=== PATIENT | male | born 1950 | race Caucasian/White ===

== ENCOUNTER 2016-10-11 09:04 | Inpatient (IN) | payer BC ==
[~2016-10-11] VITALS: Ht 177.8 cm; Wt 80.8 kg
[2016-10-11 09:11] VITALS: BP 155/91; PULSE 68; RESP 14; TEMP 97.7; O2SAT 98
--- NOTE | 2016-10-11 09:20 | PD ---
HPI Chief Complaint: abdominal pain, vomiting Time Seen by Provider: 09:20 Travel History International Travel<30 days: No Contact w/Intl Traveler<30days: No Traveled to known affect area: No History of Present Illness HPI 66-year-old male came to the emergency room with his with history of epigastric and right upper quadrant pain, nausea and vomiting since 2 days. Patient says that 2 days ago he was vomiting but then the vomiting stopped yesterday. He mostly took rest and didn't eat much and was feeling better. He ate supper last night and since 5 AM he has started with the pain and vomiting again. His vomit is green in color with no blood in it. He had a bowel movement yesterday which was normal as per him. History of fever or chills. No history of previous abdominal surgeries. He is from out of [facility] and visiting in [place]. He has history of diabetes and hypertension. His vital signs were essentially stable. [facility] Past Medical History Narrative Medical List of his past medical, surgical, social and family history was reviewed by me. Social History Tobacco Use: No Allergies-Medications (Allergen,Severity, Reaction): Coded Allergies: Penicillin (Verified Allergy, Unknown, 10/11/16) Comments List of his allergies reviewed from the nursing note. Reported Meds & Prescriptions Reported Meds & Active Scripts Active Reported Coq-10 (Coenzyme Q10 (Ubidecarenone)) 100 Mg Cap 100 Mg PO BID Aspir-81 (Aspirin) 81 Mg Tabdr Zetia (Ezetimibe) 10 Mg Tab 10 Mg PO DAILY Amlodipine-Benazepril 10-40 Mg Cap 1 Cap PO DAILY Omeprazole 40 Mg Cap 40 Mg PO BID Metformin ER (Metformin HCl) 500 Mg Liseth 500 Mg PO DAILY With evening meal Metoprolol Succinate ER 24 HR (Metoprolol Succinate) 100 Mg Tab 100 Mg PO DAILY Hydrochlorothiazide 12.5 Mg Tab 12.5 Mg PO DAILY Crestor (Rosuvastatin Calcium) 20 Mg Tab 20 Mg PO DAILY Narrative Medication List of his home medications reviewed from the nursing note. Review of Systems Except as stated in HPI: all other systems reviewed are Neg Physical Exam Narrative GENERAL: Awake, alert, moderate distress SKIN: Warm and dry. HEAD: Atraumatic. Normocephalic. EYES: Pupils equal and round. No scleral icterus. No injection or drainage. ENT: No nasal bleeding or discharge. Mucous membranes pink and moist. NECK: Trachea midline. No JVD. CARDIOVASCULAR: Regular rate and rhythm. No murmur appreciated. RESPIRATORY: No accessory muscle use. Clear to auscultation. Breath sounds equal bilaterally. GASTROINTESTINAL: Abdomen soft, Thacker sign positive, nondistended. Hepatic and splenic margins not palpable. MUSCULOSKELETAL: No obvious deformities. No clubbing. No cyanosis. No edema. NEUROLOGICAL: Awake and alert. No obvious cranial nerve deficits. Motor grossly within normal limits. Normal speech. PSYCHIATRIC: Appropriate mood and affect; insight and judgment normal. Data Data Last Documented VS Vital Signs Date Time Temp Pulse Resp B/P Pulse Ox O2 Delivery O2 Flow Rate FiO2 10/11/16 10:45 99 Room Air 10/11/16 09:11 97.7 68 14 155/91 Orders Complete Blood Count With Diff (10/11/16 09:25) Comprehensive Metabolic Panel (10/11/16 09:25) Lipase (10/11/16 09:25) Prothrombin Time / Inr (Pt) (10/11/16 09:25) Urinalysis - C+S If Indicated (10/11/16 09:25) Iv Access Insert/Monitor (10/11/16 09:25) Ecg Monitoring (10/11/16 09:25) Oximetry (10/11/16 09:25) Ed Urine Pregnancytest Poc (10/11/16 09:25) Morphine Inj (Morphine Inj) (10/11/16 09:30) Ondansetron Inj (Zofran Inj) (10/11/16 09:30) Sodium Chlor 0.9% 1000 Ml Inj (Ns 1000 M (10/11/16 09:30) Us Abdomen Gallbladder (10/11/16 ) Sodium Chlor 0.9% 1000 Ml Inj (Ns 1000 M (10/11/16 11:30) Levofloxacin 500 Mg Premix Inj (Levaquin (10/11/16 11:30) Metronidazole 500 Mg Inj (Flagyl 500 Mg (10/11/16 11:30) Blood Culture (10/11/16 11:20) Diet Npo (10/11/16 Lunch) Admit Order (Ed Use Only) (10/11/16 11:20) Labs Laboratory Tests Test 10/11/16 10:25 White Blood Count 13.0 TH/MM3 Red Blood Count 5.38 MIL/MM3 Hemoglobin 14.7 GM/DL Hematocrit 43.7 % Mean Corpuscular Volume 81.1 FL Mean Corpuscular Hemoglobin 27.4 PG Mean Corpuscular Hemoglobin 33.8 % Concent Red Cell Distribution Width 13.8 % Platelet Count 202 TH/MM3 Mean Platelet Volume 9.3 FL Neutrophils (%) (Auto) 86.3 % Lymphocytes (%) (Auto) 7.3 % Monocytes (%) (Auto) 5.7 % Eosinophils (%) (Auto) 0.3 % Basophils (%) (Auto) 0.4 % Neutrophils # (Auto) 11.3 TH/MM3 Lymphocytes # (Auto) 0.9 TH/MM3 Monocytes # (Auto) 0.7 TH/MM3 Eosinophils # (Auto) 0.0 TH/MM3 Basophils # (Auto) 0.1 TH/MM3 CBC Comment DIFF FINAL Differential Comment Prothrombin Time 12.3 SEC Prothromb Time International 1.1 RATIO Ratio Sodium Level 138 MEQ/L Potassium Level 3.8 MEQ/L Chloride Level 100 MEQ/L Carbon Dioxide Level 25.0 MEQ/L Anion Gap 13 MEQ/L Blood Urea Nitrogen 17 MG/DL Creatinine 1.20 MG/DL Estimat Glomerular Filtration 61 ML/MIN Rate Random Glucose 168 MG/DL Calcium Level 9.6 MG/DL Total Bilirubin 0.8 MG/DL Aspartate Amino Transf 13 U/L (AST/SGOT) Alanine Aminotransferase 24 U/L (ALT/SGPT) Alkaline Phosphatase 66 U/L Total Protein 8.2 GM/DL Albumin 3.8 GM/DL Lipase 96 U/L [facility] Medical Decision Making Medical Screen Exam Complete: Yes Emergency Medical Condition: Yes Medical Record Reviewed: Yes Differential Diagnosis Acute cholecystitis, acute pancreatitis, biliary colic, small bowel obstruction Narrative Course 9:58 AM based on the bedside ultrasound I asked the housing inspector just to do an official ultrasound. She happened to be in the department. Blood test and CAT scan are pending. Patient was medicated for pain and nausea and given IV fluid bolus. 11:24 AM based on the blood test and ultrasound report I discussed the case with general surgeon Dr. Lucero who is risk assessment consultant and he agreed and he will admit the patient. He will try to operate on him today if an OR is available. He wanted the patient to be transferred to the main hospital. Patient will be kept nothing by mouth. I ordered another liter of IV fluid bolus. He will get Flagyl and Levaquin IV. Procedures Procedure Narrative Emergency department right upper quadrant ultrasound was performed with patient consent. Curvilinear probe was used in the transverse and sagittal views within the right upper quadrant revealing gallbladder with stones in the gallbladder. Patient was radiologic Thacker's positive. I was unable to patch the order and send the images electronically. EKG Prior to Arrival: No Physician Communication Physician Communication Dr. Lucero Diagnosis Primary Impression: Acute cholecystitis Additional Impression: Intractable pain Admitting Information Admitting Physician Requests: Admit Rodrigo Chang MD Oct 11, 2016 09:20
[2016-10-11] MEDS ORDERED: MORPHINE SULFATE 4 MG/ML INJ IV PUSH ONE (09:30)
[2016-10-11] MEDS ORDERED: SODIUM CHLOR 0.9% 1000 ML INJ 1,000 ML IV ONE ×2 (09:30→11:30)
[2016-10-11] MEDS ORDERED: ONDANSETRON HCL 4 MG/2 ML VIAL IV PUSH ONE ×2 (09:30→14:53)
[2016-10-11] MEDS ORDERED: AMLO10CA3 PO (09:35)
[2016-10-11] MEDS ORDERED: OMEP40CA2 PO (09:35)
[2016-10-11] MEDS ORDERED: METF500T4 PO (09:35)
[2016-10-11] MEDS ORDERED: ROSU20 PO (09:35)
[2016-10-11] MEDS ORDERED: ASPI81TA81 (09:35)
[2016-10-11] MEDS ORDERED: ZETI10TA5 PO (09:35)
[2016-10-11] MEDS ORDERED: HYDR12.56 PO (09:35)
[2016-10-11] MEDS ORDERED: COQ-100C2 PO (09:35)
[2016-10-11] MEDS ORDERED: METO100T9 PO (09:35)
[2016-10-11 10:39] LABS: AUTOMATED NEUTROPHIL # 11.3 TH/MM3 (1.8-7.7); BASOPHIL # 0.1 TH/MM3 (0-0.2); BASOPHIL % 0.4 % (0.0-2.0); EOSINOPHIL % 0.3 % (0.0-4.0); HEMATOCRIT 43.7 % (39.0-51.0); HEMO FLAGS DIFF FINAL; LYMPH % 7.3 % (9.0-44.0); LYMPHOCYTE # 0.9 TH/MM3 (1.0-4.8); MEAN CELL VOLUME 81.1 FL (80.0-100.0); MEAN CORPUSCULAR HEMOGLOBIN 27.4 PG (27.0-34.0); MEAN CORPUSCULAR HGB CONC 33.8 % (32.0-36.0); MONO % 5.7 % (0.0-8.0); NEUT % 86.3 % (16.0-70.0); PLATELET COUNT 202 TH/MM3 (150-450); RED BLOOD COUNT 5.38 MIL/MM3 (4.50-5.90); RED CELL DISTRIBUTION WIDTH 13.8 % (11.6-17.2)
[2016-10-11 10:45] VITALS: O2SAT 99
[2016-10-11 10:49] LABS: CHLORIDE 100 MEQ/L (98-107); POTASSIUM 3.8 MEQ/L (3.5-5.1); SODIUM (NA) 138 MEQ/L (136-145)
[2016-10-11 10:51] LABS: INTERNATIONAL NORMALIZED RATIO 1.1 RATIO; PROTHROMBIN TIME - PATIENT 12.3 SEC (9.8-11.6)
[2016-10-11 10:52] LABS: ANION GAP 13 MEQ/L (5-15); BLOOD UREA NITROGEN 17 MG/DL (7-18)
[2016-10-11 10:55] LABS: ALT (GPT) 24 U/L (12-78); AST (GOT) 13 U/L (15-37); GLOMERULAR FILTRATION RATE 61 ML/MIN (>89)
[2016-10-11 10:57] LABS: TOTAL BILIRUBIN ADULT 0.8 MG/DL (0.2-1.0)
[2016-10-11 10:58] LABS: ALKALINE PHOSPHATASE 66 U/L (45-117)
--- NOTE | 2016-10-11 11:01 | RADHPO ---
EXAM DATE/TIME: 10/11/2016 08:55 [facility] COMPARISON: No previous studies available for comparison. INDICATIONS: Abdominal pain, nausea and vomiting. MEDICAL HISTORY: Hypertension. Hypercholesterolemia. Diabetic. SURGICAL HISTORY: Repair of esophageal bleed. ENCOUNTER: Initial ACUITY: 2 days PAIN SCORE: 7/10 LOCATION: Right upper quadrant MEASUREMENTS: LIVER: 15.2 cm length COMMON DUCT: 3 mm RIGHT KIDNEY: 13.5 x 7.1 x 7.1 cm FINDINGS: LIVER: The liver is echogenic. There is a 0.7 cm cyst seen at the left lobe. COMMON DUCT: No intraluminal mass or stone visualized. GALLBLADDER: The gallbladder is distended. The gallbladder wall is upper limits of normal for size measuring 3 mm . There is a 2.0 x 1.9 x 1.7 cm solid mass seen at the gallbladder neck. This does not appear to sh adow or move. Typically a gallstone of this size would shadow. There does appear to be some mild pe richolecystic fluid. PANCREAS: The pancreas is obscured by overlying bowel gas. RIGHT KIDNEY: The right kidney is normal in size. Multiple renal cysts are seen. No hydronephrosis seen. CONCLUSION: 1. A 2 cm solid mass at the gallbladder neck without shadowing. This likely represents a large poly p. Typically stones of this size would shadow. If the stone is soft enough potentially it would not shadow but again this would be atypical. The gallbladder wall is thickened with some minimal perich olecystic fluid. Some degree of inflammatory change or cholecystistis cannot be excluded. 3. Fatty infiltration of the liver. 4. Multiple renal cyst seen at the right kidney. 2. Manuel Hendrickson MD on October 11, 2016 at 10:43 Board Certified Radiologist. This report was verified electronically.
[2016-10-11] MEDS ORDERED: metroNIDAZOLE 500 MG INJ 100 ML IV ONE (11:30)
[2016-10-11] MEDS ORDERED: LEVOFLOXACIN 500 MG PREMIX INJ 100 ML IV ONE (11:30)
[2016-10-11] MEDS ORDERED: METFORMIN HOLD POST IV CONTRAST XX SCH (12:25)
[2016-10-11 12:27] LABS: BLOOD, URINE NEG (NEG); GLUCOSE,URINE 100 mg/dL (NEG); KETONE, URINE 15 mg/dL (NEG); NITRITE,URINE NEG (NEG); PH, URINE 7.5 (5.0-8.5)
[2016-10-11] MEDS ORDERED: IOHEXOL 350 MG/ML 10 ML VIAL (for RAD DIAG) IV ONE (12:27)
[2016-10-11 12:41] LABS: METHOD OF COLLECTION CLEAN CATCH; URINE COLOR YELLOW (YELLW/STRAW)
[2016-10-11 12:42] LABS: CULTURE IF INDICATED CULT NOT INDICATED; SQUAMOUS EPITHELIAL CELL URINE 0-5 /hpf (0-5)
[2016-10-11 12:43] LABS: COMMENT (UR) CULT NOT INDICATED
--- NOTE | 2016-10-11 12:46 | RADHPO ---
EXAM DATE/TIME: 10/11/2016 12:16 [facility] COMPARISON: No previous studies available for comparison. INDICATIONS : Epigastric pain with nausea and vomiting. Abnormal ultrasound. IV CONTRAST: 95 cc Omnipaque 350 (iohexol) IV ORAL CONTRAST: No oral contrast ingested. RADIATION DOSE: 16.35 CTDIvol (mGy) MEDICAL HISTORY : Hypertension. Diabetes. SURGICAL HISTORY : None. ENCOUNTER: Initial ACUITY: 2 days PAIN SCALE: 5/10 LOCATION: upper quadrant TECHNIQUE: Volumetric scanning of the abdomen and pelvis was performed. Using automated exposure control and ad justment of the mA and/or kV according to patient size, radiation dose was kept as low as reasonably achievable to obtain optimal diagnostic quality images. FINDINGS: LOWER LUNGS: The visualized lower lungs are clear. Coronary artery calcifications are present. LIVER: There is decreased density of the liver with several small subcentimeter hypodensity seen in the live r. There is no dilation of the biliary tree. No calcified gallstones. The gallbladder is distended. Gallbladder wall is mildly thickened. SPLEEN: Normal size without lesion. PANCREAS: Within normal limits. KIDNEYS: Normal in size and shape. There is no solid mass, stone or hydronephrosis. Multiple renal cysts are seen bilaterally. ADRENAL GLANDS: Within normal limits. VASCULAR: There is no aortic aneurysm. BOWEL/MESENTERY: There is a mild hiatal hernia present. The stomach, small bowel, and colon demonstrate no acute abnor mality. There is no free intraperitoneal air or fluid. The appendix is normal. There are scattered c olonic diverticula without inflammatory change seen. There is some inflammatory change between the ga llbladder and the proximal transverse colon. ABDOMINAL WALL: Within normal limits. RETROPERITONEUM: There is no lymphadenopathy. BLADDER: No wall thickening or mass. The urinary bladder is distended. REPRODUCTIVE: Within normal limits. INGUINAL: There is no lymphadenopathy or hernia. MUSCULOSKELETAL: There is degenerative change in the lower lumbar spine. CONCLUSION: 1. Distention of the gallbladder with gallbladder wall thickening and mild inflammatory change especi ally between the bladder and the transverse colon potentially represent cholecystitis. The patient roque d 2 cm mass seen on ultrasound in the gallbladder that did not shadow. An unusual stone cannot be exc luded on the ultrasound. 2. Numerous cysts in the kidneys. There is also small hypodensities in the liver likely representing cyst. These are nonspecific. One could consider the possibility of autosomal, dominant polycystic kid sandra disease. 3. Fatty infiltration of the liver. 4. Small hiatal hernia. 5. Colonic diverticula. 6. Distended urinary bladder. Manuel Hendrickson MD on October 11, 2016 at 12:35 Board Certified Radiologist. This report was verified electronically.
[2016-10-11 13:25] VITALS: BP 155/73; PULSE 77; RESP 14; O2SAT 94
[2016-10-11] MEDS ORDERED: NEOSTIGMINE 3 MG/3 ML SYR IV ONE (14:53)
[2016-10-11] MEDS ORDERED: PHENYLEPH/NS 1000 MCG/10 ML SYR IV ONE (14:53)
[2016-10-11] MEDS ORDERED: LACTATED RINGER'S 1000 ML INJ 1,000 ML IV ONE (14:53)
[2016-10-11] MEDS ORDERED: PROPOFOL 200 MG/20 ML AMP IV ONE (14:53)
[2016-10-11 17:08] VITALS: BP 154/77
[2016-10-11] MEDS ORDERED: LACTATED RINGER'S 1000 ML INJ 1,000 ML ONE (18:48)
[2016-10-11] MEDS ORDERED: SODIUM CHLORID 0.9% 500 ML IV SCH (19:00)
[2016-10-11] MEDS ORDERED: METOPROLOL TARTRATE 25 MG TAB PO PRN (19:00)
[2016-10-11] MEDS ORDERED: LACTATED RINGER'S 1000 ML IV SCH (19:00)
[2016-10-11] MEDS ORDERED: INSULIN HUMAN REGULAR 1,000 UNITS/10 ML VIAL SQ PRN (19:00)
--- NOTE | 2016-10-11 19:28 | HHI.HP ---
HPI Service General Surgery Primary Care Physician Non-Staff Admission Diagnosis acute cholecystitis, intractable pain Chief Complaint: Abdominal pain History of Present Illness 66-year-old male who developed abdominal pain in the epigastrium 2 nights ago. He was able to sleep but then woke with severe epigastric and right upper quadrant pain. The next day the patient felt a little better but then again developed pain nausea and vomiting. He continued to have vomiting today. He hasn't had any abdominal surgeries. He was evaluated in the emergency department a [place] and noted to have leukocytosis and a gallbladder ultrasound showing some gallbladder wall thickening, trace pericholecystic fluid , and a 2 cm mass probably polyp in the neck of the gallbladder. The patient is here from out of town visiting for bike week. Review of Systems Constitutional: DENIES: Fever, Weight loss Eyes: DENIES: Eye inflammation, Eye pain Respiratory: DENIES: Cough, Shortness of breath Cardiovascular: DENIES: Chest pain, Palpitations Gastrointestinal: COMPLAINS OF: Abdominal pain, Nausea, Vomiting Integumentary: DENIES: Pruritus, Rash Neurologic: DENIES: Headache, Localized weakness Past Family Social History Past Medical History Hypertension Diabetes Past Surgical History Knee surgery Reported Medications Reported Meds & Active Scripts Active Reported Coq-10 (Coenzyme Q10 (Ubidecarenone)) 100 Mg Cap 100 Mg PO BID Aspir-81 (Aspirin) 81 Mg Tabdr Zetia (Ezetimibe) 10 Mg Tab 10 Mg PO DAILY Amlodipine-Benazepril 10-40 Mg Cap 1 Cap PO DAILY Omeprazole 40 Mg Cap 40 Mg PO BID Metformin ER (Metformin HCl) 500 Mg Liseth 500 Mg PO DAILY With evening meal Metoprolol Succinate ER 24 HR (Metoprolol Succinate) 100 Mg Tab 100 Mg PO DAILY Hydrochlorothiazide 12.5 Mg Tab 12.5 Mg PO DAILY Crestor (Rosuvastatin Calcium) 20 Mg Tab 20 Mg PO DAILY Allergies: Coded Allergies: Penicillin (Verified Allergy, Unknown, 10/11/16) Active Ordered Medications Current Medications Medications (Trade) Dose Ordered Sig/Jeannie Route Start Time Stop Time Status Last Admin Lactated Ringer's 1,000 ml @ 30 mls/hr Q24H IV 10/11/16 19:00 (NS 500 ml Inj) 500 ml @ 30 mls/hr [id number] IV 10/11/16 19:00 10/12/16 18:59 Family History Noncontributory Social History He stopped smoking 15 years ago. Rare alcohol use. He is visiting from out of town. Physical Exam Vital Signs Vital Signs Date Time Temp Pulse Resp B/P Pulse Ox O2 Delivery O2 Flow Rate FiO2 10/11/16 17:08 81 15 154/77 100 10/11/16 13:25 77 14 155/73 94 Room Air 10/11/16 10:45 99 Room Air 10/11/16 09:11 97.7 68 14 155/91 98 Nasal Cannula Physical Exam GENERAL: Awake and alert. No acute distress. Cooperative. HEAD: Normocephalic. Atraumatic. EYES: Pupils equal round and reactive to light bilaterally. No scleral icterus.. CHEST: Lungs clear to auscultation bilaterally with no wheezing or rhonchi. No respiratory distress. CARDIOVASCULAR: Regular rate and rhythm. ABDOMEN: Round. Severe right upper quadrant tenderness to palpation. Mild right lower and left upper quadrant tenderness. EXTREMITIES: No cyanosis or edema. SKIN: Warm, dry, nonjaundiced. Laboratory Laboratory Tests Test 10/11/16 10/11/16 10:25 12:15 White Blood Count 13.0 Red Blood Count 5.38 Hemoglobin 14.7 Hematocrit 43.7 Mean Corpuscular Volume 81.1 Mean Corpuscular Hemoglobin 27.4 Mean Corpuscular Hemoglobin 33.8 Concent Red Cell Distribution Width 13.8 Platelet Count 202 Mean Platelet Volume 9.3 Neutrophils (%) (Auto) 86.3 Lymphocytes (%) (Auto) 7.3 Monocytes (%) (Auto) 5.7 Eosinophils (%) (Auto) 0.3 Basophils (%) (Auto) 0.4 Neutrophils # (Auto) 11.3 Lymphocytes # (Auto) 0.9 Monocytes # (Auto) 0.7 Eosinophils # (Auto) 0.0 Basophils # (Auto) 0.1 CBC Comment DIFF FINAL Differential Comment Prothrombin Time 12.3 Prothromb Time International 1.1 Ratio Sodium Level 138 Potassium Level 3.8 Chloride Level 100 Carbon Dioxide Level 25.0 Anion Gap 13 Blood Urea Nitrogen 17 Creatinine 1.20 Estimat Glomerular Filtration 61 Rate Random Glucose 168 Calcium Level 9.6 Total Bilirubin 0.8 Aspartate Amino Transf 13 (AST/SGOT) Alanine Aminotransferase 24 (ALT/SGPT) Alkaline Phosphatase 66 Total Protein 8.2 Albumin 3.8 Lipase 96 Urine Collection Type CLEAN CATCH Urine Color YELLOW Urine Turbidity CLEAR Urine pH 7.5 Urine Specific [place] 1.016 Urine Protein TRACE Urine Glucose (UA) 100 Urine Ketones 15 Urine Occult Blood NEG Urine Nitrite NEG Urine Bilirubin NEG Urine Leukocyte Esterase NEG Urine Squamous Epithelial 0-5 Cells Urine Amorphous Sediment FEW Microscopic Urinalysis Comment CULT NOT INDICATED Urine Collection Time 1215 Date/Time Procedure Status Source Growth 10/11/16 11:36 Aerobic Blood Culture Received Blood Peripheral Pending 10/11/16 11:36 Anaerobic Blood Culture Received Blood Peripheral Pending Result Diagram: 10/11/16 1025 10/11/16 1025 Imaging Last Impressions Gall Bladder Ultrasound 10/11/16 0000 Signed Impressions: Service Date/Time: Tuesday, October 11, 2016 08:55 - CONCLUSION: 1. A 2 cm solid mass at the gallbladder neck without shadowing. This likely represents a large polyp. Typically stones of this size would shadow. If the stone is soft enough potentially it would not shadow but again this would be atypical. The gallbladder wall is thickened with some minimal pericholecystic fluid. Some degree of inflammatory change or cholecystistis cannot be excluded. 3. Fatty infiltration of the liver. 4. Multiple renal cyst seen at the right kidney. 2. Manuel Hendrickson MD Abdomen/Pelvis CT 10/11/16 0000 Signed Impressions: Service Date/Time: Tuesday, October 11, 2016 12:16 - CONCLUSION: 1. Distention of the gallbladder with gallbladder wall thickening and mild inflammatory change especially between the bladder and the transverse colon potentially represent cholecystitis. The patient had 2 cm mass seen on ultrasound in the gallbladder that did not shadow. An unusual stone cannot be excluded on the ultrasound. 2. Numerous cysts in the kidneys. There is also small hypodensities in the liver likely representing cyst. These are nonspecific. One could consider the possibility of autosomal, dominant polycystic kidney disease. 3. Fatty infiltration of the liver. 4. Small hiatal hernia. 5. Colonic diverticula. 6. Distended urinary bladder. Manuel Hendrickson MD Assessment and Plan Assessment and Plan 66-year-old male with acute cholecystitis and a 2 cm gallbladder polyp. I ordered a CT abdomen and pelvis to be sure there was no apparent infiltrative mass and there was not. I recommended to proceed with laparoscopic, possible open, cholecystectomy. I did tell the patient about the gallbladder polyp. In the unlikely event that there is an underlying malignancy further surgery would depend on pathologic findings. I discussed details, risks, and benefits of laparoscopic cholecystectomy. The patient desires to proceed. Fransico Lucero MD Oct 11, 2016 19:28
[2016-10-11] MEDS ORDERED: BUPIVACAINE/EPINEPHRINE 0.5% PF 30 ML VIAL ONE (19:35)
[2016-10-11] MEDS ORDERED: METOPROLOL TARTRATE 5 MG/5 ML VIAL ONE (19:42)
[2016-10-11] MEDS ORDERED: diphenhydrAMINE HCL 25 MG CAP PO PRN (22:00)
[2016-10-11] MEDS ORDERED: Post-op Orders (for Pharmacy) MISC XX ONE (22:00)
[2016-10-11] MEDS ORDERED: ONDANSETRON HCL 4 MG/2 ML VIAL IV PRN (22:00)
[2016-10-11] MEDS ORDERED: SODIUM CHLORIDE 0.9% FLUSH 5 ML FLUSH IVF PRN (22:00)
[2016-10-11] MEDS ORDERED: oxyCODONE/ACETAMINOPHEN 5 MG/325 MG TAB PO PRN (22:00)
[2016-10-11] MEDS ORDERED: METOPROLOL TARTRATE 50 MG TAB PO ONE (22:00)
[2016-10-11] MEDS ORDERED: NALOXONE HCL 0.4 MG/ML AMP IV PRN (22:00)
[2016-10-11] MEDS ORDERED: fentaNYL CITRATE 250 MCG/5 ML AMP ONE (22:07)
[2016-10-11] MEDS ORDERED: MIDAZOLAM HCL 2 MG/2 ML VIAL ONE (22:07)
--- NOTE | 2016-10-11 22:07 | PD.OP ---
cc: Fransico Lucero MD Operative Report Date of Surgery: Oct 11, 2016 Preoperative Diagnosis: (1) Acute cholecystitis Postoperative Diagnosis: (1) Acute cholecystitis Procedure: Laparoscopic cholecystectomy Anesthesia: GETA Surgeon: Fransico Lucero Property Clerk(s): Leila BRUNO Operation and Findings: Complications: None apparent EBL: 200 cc Operative findings: The patient had severe inflammation of the gallbladder. It was covered in omentum. The liver was very friable. Procedure in detail: The patient was taken to the operating room and placed in the supine position. General endotracheal anesthesia was induced. The abdomen was prepped and draped in usual sterile fashion and a surgical timeout was performed to verify correct patient procedure and site. Appropriate perioperative antibiotics were administered. Local anesthetic was injected in the skin and subcutaneous tissue superior to the umbilicus and a 5 mm incision performed. The abdomen was entered using the Optiview 5 mm trocar with direct laparoscopic visualization. The abdomen was then insufflated to 15 mmHg with CO2 gas which the patient tolerated well. Next a 12 mm port was placed in the epigastrium and two 5 mm ports in the right upper quadrant and right lateral abdomen. The patient was placed in reverse Trendelenburg position and turned slightly to the left. The gallbladder severely distended and inflamed and was covered in omentum. The omentum was taken off of the gallbladder using electrocautery and blunt dissection. The liver was extremely friable. The gallbladder was extremely distended therefore the dome of the gallbladder was opened and bile suctioned using the suction- wire frame dipper. Continued careful meticulous dissection primarily bluntly was performed. Due to severe inflammation and difficulty with visualization the gallbladder was dissected back and forth on either side. Initially the back wall of the gallbladder was left on the liver. The judd flex liver retractor was placed through the right lateral port and used to elevate the liver. With continued careful dome down dissection much of the gallbladder was removed from the liver bed. The neck of the gallbladder was further carefully dissected. The peritoneum was scored. Suction wire frame dipper was used for most of the dissection areas was electrocautery. Finally the cystic duct appeared well dissected free. A few remaining attachments of gallbladder to liver bed were taken down including the remainder of the gallbladder wall which was on the liver. Finally the gallbladder was attached only by the cystic duct. 2 #1 PDS Endoloops were placed on the cystic duct and the cystic duct and divided. Hemostasis was achieved during the procedure partially using Surgicel snow. After the procedure, 3 g of Kelsie was placed in the liver bed. There was good hemostasis. The cystic duct was intact with no leakage. The right upper quadrant was copiously irrigated prior to placing the Kelsie. At this point, the abdomen was allowed to desufflate and trochars were removed. The fascia at the 12 mm port site was closed with 0 Vicryl suture. Skin was closed with subcuticular 4-0 Monocryl as well as Dermabond. The patient tolerated the procedure well and was extubated and taken to PACU in stable condition. All sponge and instrument counts were correct. Fransico Lucero MD Oct 11, 2016 22:07
[2016-10-11] MEDS ORDERED: DEXTROSE 50% IN WATER 50 ML VIAL(D50) IV PUSH PRN (22:15)
[2016-10-11] MEDS ORDERED: GLUCAGON 1 MG/ML VIAL OTHER PRN (22:15)
[2016-10-11] MEDS: LACTATED RINGER'S 1000 ML INJ 1,000 ML IV SCH (22:15)
[2016-10-11] MEDS ORDERED: DO NOT ADM ANY ANTICOAGULANT DRUGS XX PRN (22:30)
[2016-10-11 22:47] LABS: CREATINE KINASE 51 U/L (39-308)
[2016-10-12] VITALS (8 sets, daily range): BP systolic 137–162; BP diastolic 78–87; PULSE 74–96; RESP 16–22; TEMP 96.2–98.6; O2SAT 93–98
[2016-10-12] MEDS: oxyCODONE/ACETAMINOPHEN 10 MG/325 MG TAB PO PRN ×4 (00:36→20:25)
[2016-10-12] MEDS: metroNIDAZOLE 500 MG INJ 100 ML IV SCH ×4 (03:53→20:18)
[2016-10-12 05:03] LABS: AUTOMATED NEUTROPHIL # 13.8 TH/MM3 (1.8-7.7); BASOPHIL % 0.1 % (0.0-2.0); HEMATOCRIT 36.8 % (39.0-51.0); HEMO FLAGS DIFF FINAL; LYMPH % 5.1 % (9.0-44.0); LYMPHOCYTE # 0.8 TH/MM3 (1.0-4.8); MEAN CELL VOLUME 79.1 FL (80.0-100.0); MEAN CORPUSCULAR HEMOGLOBIN 27.8 PG (27.0-34.0); MEAN CORPUSCULAR HGB CONC 35.1 % (32.0-36.0); MONO % 6.7 % (0.0-8.0); NEUT % 88.1 % (16.0-70.0); PLATELET COUNT 188 TH/MM3 (150-450); RED BLOOD COUNT 4.65 MIL/MM3 (4.50-5.90); WHITE BLOOD COUNT 15.6 TH/MM3 (4.0-11.0)
[2016-10-12 05:30] LABS: BICARBONATE 24.2 MEQ/L (21.0-32.0); INDIRECT BILIRUBIN 0.7 MG/DL (0.0-0.8); POTASSIUM 3.5 MEQ/L (3.5-5.1); TOTAL BILIRUBIN ADULT 0.9 MG/DL (0.2-1.0)
[2016-10-12] MEDS: PANTOPRAZOLE SOD 40 MG DELAYED RELEASE TAB PO SCH ×2 (06:20→16:04)
[2016-10-12] MEDS: INSULIN NovoLIN REGULAR SUPPLEMENTAL SCALE SQ SCH ×4 (06:20→22:17)
[2016-10-12] MEDS: SODIUM CHLORIDE 0.9% FLUSH 5 ML FLUSH IVF SCH ×2 (09:00→20:18)
[2016-10-12] MEDS: LISINOPRIL 20 MG TAB PO SCH (09:49)
[2016-10-12] MEDS: ATORVASTATIN 40 MG TAB PO SCH (09:49)
[2016-10-12] MEDS: EZETIMIBE 10 MG TAB PO SCH (09:49)
[2016-10-12] MEDS: METOPROLOL SUCCINATE 50 MG EXTENDED RELEASE TAB PO SCH (09:49)
[2016-10-12] MEDS: HYDROCHLOROTHIAZIDE 12.5 MG CAP PO SCH (09:49)
[2016-10-12] MEDS: LACTATED RINGER'S 1000 ML INJ 1,000 ML IV SCH ×3 (09:54→22:18)
--- NOTE | 2016-10-12 11:07 | HHI.PR ---
Subjective Subjective Notes Demetrio minimal clear liquids. Belching. Feels ok overall. No chest pain. Objective Vitals/I&O Vital Signs Date Time Temp Pulse Resp B/P Pulse Ox O2 Delivery O2 Flow Rate FiO2 10/12/16 08:00 98.3 96 18 137/78 95 10/11/16 23:00 Nasal Cannula 2 Labs Laboratory Tests Test 10/11/16 10/11/16 10/12/16 10/12/16 12:15 22:18 04:54 04:55 Urine Collection Type CLEAN CATCH Urine Color YELLOW Urine Turbidity CLEAR Urine pH 7.5 Urine Specific [place] 1.016 Urine Protein TRACE Urine Glucose (UA) 100 Urine Ketones 15 Urine Occult Blood NEG Urine Nitrite NEG Urine Bilirubin NEG Urine Leukocyte Esterase NEG Urine Squamous Epithelial 0-5 Cells Urine Amorphous Sediment FEW Microscopic Urinalysis Comment CULT NOT INDICATED Urine Collection Time 1215 Total Creatine Kinase 51 Troponin I LESS THAN 0.02 Sodium Level 135 Potassium Level 3.5 Chloride Level 98 Carbon Dioxide Level 24.2 Anion Gap 13 Blood Urea Nitrogen 15 Creatinine 1.04 Estimat Glomerular Filtration 72 Rate Random Glucose 192 Calcium Level 8.0 Total Bilirubin 0.9 Direct Bilirubin 0.2 Indirect Bilirubin 0.7 Aspartate Amino Transf 91 (AST/SGOT) Alanine Aminotransferase 77 (ALT/SGPT) Alkaline Phosphatase 61 Total Protein 6.7 Albumin 2.9 White Blood Count 15.6 Red Blood Count 4.65 Hemoglobin 12.9 Hematocrit 36.8 Mean Corpuscular Volume 79.1 Mean Corpuscular Hemoglobin 27.8 Mean Corpuscular Hemoglobin 35.1 Concent Red Cell Distribution Width 15.0 Platelet Count 188 Mean Platelet Volume 9.3 Neutrophils (%) (Auto) 88.1 Lymphocytes (%) (Auto) 5.1 Monocytes (%) (Auto) 6.7 Eosinophils (%) (Auto) 0.0 Basophils (%) (Auto) 0.1 Neutrophils # (Auto) 13.8 Lymphocytes # (Auto) 0.8 Monocytes # (Auto) 1.0 Eosinophils # (Auto) 0.0 Basophils # (Auto) 0.0 CBC Comment DIFF FINAL Differential Comment Date/Time Procedure Status Source Growth 10/11/16 11:36 Aerobic Blood Culture Received Blood Peripheral Pending 10/11/16 11:36 Anaerobic Blood Culture Received Blood Peripheral Pending Radiology Last Impressions Gall Bladder Ultrasound 10/11/16 0000 Signed Impressions: Service Date/Time: Tuesday, October 11, 2016 08:55 - CONCLUSION: 1. A 2 cm solid mass at the gallbladder neck without shadowing. This likely represents a large polyp. Typically stones of this size would shadow. If the stone is soft enough potentially it would not shadow but again this would be atypical. The gallbladder wall is thickened with some minimal pericholecystic fluid. Some degree of inflammatory change or cholecystistis cannot be excluded. 3. Fatty infiltration of the liver. 4. Multiple renal cyst seen at the right kidney. 2. Manuel Hendrickson MD Abdomen/Pelvis CT 10/11/16 0000 Signed Impressions: Service Date/Time: Tuesday, October 11, 2016 12:16 - CONCLUSION: 1. Distention of the gallbladder with gallbladder wall thickening and mild inflammatory change especially between the bladder and the transverse colon potentially represent cholecystitis. The patient had 2 cm mass seen on ultrasound in the gallbladder that did not shadow. An unusual stone cannot be excluded on the ultrasound. 2. Numerous cysts in the kidneys. There is also small hypodensities in the liver likely representing cyst. These are nonspecific. One could consider the possibility of autosomal, dominant polycystic kidney disease. 3. Fatty infiltration of the liver. 4. Small hiatal hernia. 5. Colonic diverticula. 6. Distended urinary bladder. Manuel Hendrickson MD Narrative Exam NAD CV: RRR Nonlabored breathing Abd: distended, tympanitic, inc c/d/i, expected post op ttp A/P Assessment and Plan 66 yo M POD 1 s/p lap kenji for severe acute cholecystitis. He has a post op ileus, not tolerating much orally yet. Diet as demetrio. Ambulate. Continue home meds. Will keep him here overnight; expected dc tomorrow. Cont IV antibiotics. NicFransico MD Oct 12, 2016 11:07
[2016-10-12] MEDS ORDERED: CALCIUM CARBONATE 500 MG CHEWABLE TAB CHEW PRN (11:15)
[2016-10-12] MEDS: LEVOFLOXACIN 750 MG PREMIX INJ 150 ML IV SCH (11:30)
[2016-10-12] MEDS: MORPHINE SULFATE 4 MG/ML INJ IV PRN (13:19)
--- NOTE | 2016-10-12 19:59 | EKG ---
Date Performed: 10/11/2016 Time Performed: 22:07:46 PTAGE: 66 years EKG: Sinus rhythm MODERATE ST DEPRESSION ABNORMAL ECG PREVIOUS TRACING : 10/11/2016 18.57 Compared to the previous tracing RBBB no longer seen DOCTOR: Geoffrey Beckwith Interpretating Date/Time 10/12/2016 19:57:45
--- NOTE | 2016-10-12 20:03 | EKG ---
Date Performed: 10/11/2016 Time Performed: 18:57:55 PTAGE: 66 years EKG: Sinus rhythm RIGHT BUNDLE BRANCH BLOCK ABNORMAL ECG NO PREVIOUS TRACING DOCTOR: Geoffrey Beckwith Interpretating Date/Time 10/12/2016 20:02:49
[2016-10-13] VITALS (8 sets, daily range): BP systolic 118–150; BP diastolic 72–83; PULSE 68–97; RESP 18–19; TEMP 97.6–98.5; O2SAT 93–96
[2016-10-13] MEDS: metroNIDAZOLE 500 MG INJ 100 ML IV SCH ×4 (02:06→20:45)
[2016-10-13] MEDS: MORPHINE SULFATE 4 MG/ML INJ IV PRN (02:09)
[2016-10-13] MEDS: INSULIN NovoLIN REGULAR SUPPLEMENTAL SCALE SQ SCH ×4 (05:04→22:10)
[2016-10-13] MEDS: PANTOPRAZOLE SOD 40 MG DELAYED RELEASE TAB PO SCH ×2 (05:04→16:19)
[2016-10-13] MEDS: LISINOPRIL 20 MG TAB PO SCH (08:59)
[2016-10-13] MEDS: HYDROCHLOROTHIAZIDE 12.5 MG CAP PO SCH (09:00)
[2016-10-13] MEDS: ATORVASTATIN 40 MG TAB PO SCH (09:00)
[2016-10-13] MEDS: EZETIMIBE 10 MG TAB PO SCH (09:00)
[2016-10-13] MEDS: SODIUM CHLORIDE 0.9% FLUSH 5 ML FLUSH IVF SCH ×2 (09:00→20:45)
[2016-10-13] MEDS: METOPROLOL SUCCINATE 50 MG EXTENDED RELEASE TAB PO SCH (09:00)
--- NOTE | 2016-10-13 10:16 | HHI.PR ---
Subjective Subjective Notes He is feeling better but not passing any flatus. Tolerated some liquids but not much. Pain controlled. A little SOB due to abdominal distention and pain. Objective Vitals/I&O Vital Signs Date Time Temp Pulse Resp B/P Pulse Ox O2 Delivery O2 Flow Rate FiO2 10/13/16 08:00 97.7 75 18 150/80 95 10/12/16 17:02 21 10/11/16 23:00 Nasal Cannula 2 Labs Date/Time Procedure Status Source Growth 10/11/16 11:36 Aerobic Blood Culture - Preliminary Resulted Blood Peripheral NO GROWTH IN 1 DAY 10/11/16 11:36 Anaerobic Blood Culture - Preliminary Resulted Blood Peripheral NO GROWTH IN 1 DAY Radiology Last Impressions Gall Bladder Ultrasound 10/11/16 0000 Signed Impressions: Service Date/Time: Tuesday, October 11, 2016 08:55 - CONCLUSION: 1. A 2 cm solid mass at the gallbladder neck without shadowing. This likely represents a large polyp. Typically stones of this size would shadow. If the stone is soft enough potentially it would not shadow but again this would be atypical. The gallbladder wall is thickened with some minimal pericholecystic fluid. Some degree of inflammatory change or cholecystistis cannot be excluded. 3. Fatty infiltration of the liver. 4. Multiple renal cyst seen at the right kidney. 2. Manuel Hendrickson MD Abdomen/Pelvis CT 10/11/16 0000 Signed Impressions: Service Date/Time: Tuesday, October 11, 2016 12:16 - CONCLUSION: 1. Distention of the gallbladder with gallbladder wall thickening and mild inflammatory change especially between the bladder and the transverse colon potentially represent cholecystitis. The patient had 2 cm mass seen on ultrasound in the gallbladder that did not shadow. An unusual stone cannot be excluded on the ultrasound. 2. Numerous cysts in the kidneys. There is also small hypodensities in the liver likely representing cyst. These are nonspecific. One could consider the possibility of autosomal, dominant polycystic kidney disease. 3. Fatty infiltration of the liver. 4. Small hiatal hernia. 5. Colonic diverticula. 6. Distended urinary bladder. Manuel Hendrickson MD Narrative Exam NAD Nonlabored breathing Abd: distended, tympanitic, inc c/d/i A/P Assessment and Plan 66 yo M POD 2 s/p lap kenji for severe acute cholecystitis. He has a persistent post op ileus, not tolerating much orally. Fulls. Start reglan. Check labs. Ambulate. Continue home meds. Cont IV antibiotics. He will stay until ileus is resolving. Fransico Lucero MD Oct 13, 2016 10:15
[2016-10-13] MEDS: LEVOFLOXACIN 750 MG PREMIX INJ 150 ML IV SCH (11:19)
[2016-10-13] MEDS: oxyCODONE/ACETAMINOPHEN 10 MG/325 MG TAB PO PRN ×3 (11:20→22:09)
[2016-10-13 13:28] LABS: AUTOMATED NEUTROPHIL # 12.7 TH/MM3 (1.8-7.7); BASOPHIL % 0.1 % (0.0-2.0); EOSINOPHIL % 0.1 % (0.0-4.0); HEMATOCRIT 34.9 % (39.0-51.0); HEMO FLAGS DIFF FINAL; LYMPH % 6.1 % (9.0-44.0); LYMPHOCYTE # 0.9 TH/MM3 (1.0-4.8); MEAN CELL VOLUME 79.7 FL (80.0-100.0); MEAN CORPUSCULAR HEMOGLOBIN 26.7 PG (27.0-34.0); MEAN CORPUSCULAR HGB CONC 33.5 % (32.0-36.0); MONO % 5.8 % (0.0-8.0); NEUT % 87.9 % (16.0-70.0); PLATELET COUNT 180 TH/MM3 (150-450); RED BLOOD COUNT 4.37 MIL/MM3 (4.50-5.90); RED CELL DISTRIBUTION WIDTH 14.9 % (11.6-17.2); WHITE BLOOD COUNT 14.4 TH/MM3 (4.0-11.0)
[2016-10-13] MEDS: METOCLOPRAMIDE HCL 10 MG/2 ML VIAL IV PUSH SCH ×2 (13:53→20:46)
[2016-10-13] MEDS: LACTATED RINGER'S 1000 ML INJ 1,000 ML IV SCH (13:53)
[2016-10-13 13:57] LABS: ANION GAP 8 MEQ/L (5-15); AST (GOT) 24 U/L (15-37); BICARBONATE 30.7 MEQ/L (21.0-32.0); BLOOD UREA NITROGEN 20 MG/DL (7-18); CHLORIDE 93 MEQ/L (98-107); GLOMERULAR FILTRATION RATE 67 ML/MIN (>89); POTASSIUM 3.4 MEQ/L (3.5-5.1); SODIUM (NA) 132 MEQ/L (136-145)
[2016-10-13 13:59] LABS: ALKALINE PHOSPHATASE 61 U/L (45-117); ALT (GPT) 39 U/L (12-78); TOTAL BILIRUBIN ADULT 0.7 MG/DL (0.2-1.0)
[2016-10-14] VITALS: BP 123/68; PULSE 74; RESP 18; TEMP 97.9; O2SAT 93
[2016-10-14] MEDS: metroNIDAZOLE 500 MG INJ 100 ML IV SCH ×2 (01:30→09:14)
[2016-10-14] MEDS: LACTATED RINGER'S 1000 ML INJ 1,000 ML IV SCH (01:31)
[2016-10-14 04:00] VITALS: BP 135/80; PULSE 80; RESP 18; TEMP 98.2; O2SAT 93
[2016-10-14] MEDS: PANTOPRAZOLE SOD 40 MG DELAYED RELEASE TAB PO SCH ×2 (05:33→09:13)
[2016-10-14] MEDS: INSULIN NovoLIN REGULAR SUPPLEMENTAL SCALE SQ SCH ×2 (05:33→11:00)
[2016-10-14] MEDS: METOCLOPRAMIDE HCL 10 MG/2 ML VIAL IV PUSH SCH (05:33)
[2016-10-14 08:20] VITALS: BP 128/79; PULSE 78; RESP 20; TEMP 97.3; O2SAT 93
[2016-10-14] MEDS: SODIUM CHLORIDE 0.9% FLUSH 5 ML FLUSH IVF SCH (09:00)
[2016-10-14] MEDS: LISINOPRIL 20 MG TAB PO SCH (09:12)
[2016-10-14] MEDS: ATORVASTATIN 40 MG TAB PO SCH (09:12)
[2016-10-14] MEDS: METOPROLOL SUCCINATE 50 MG EXTENDED RELEASE TAB PO SCH (09:12)
[2016-10-14] MEDS: HYDROCHLOROTHIAZIDE 12.5 MG CAP PO SCH (09:12)
[2016-10-14] MEDS: EZETIMIBE 10 MG TAB PO SCH (09:12)
[2016-10-14] MEDS ORDERED: OXYC1TAB63 PO (10:16)
--- NOTE | 2016-10-14 11:12 | HHI.DS ---
Discharge Summary Admission Date Oct 13, 2016 at 16:15 Discharge Date: Oct 14, 2016 Admitting Diagnosis acute cholecystitis, intractable pain Procedures Laparoscopic cholecystectomy Brief History 66-year-old male who developed abdominal pain in the epigastrium 2 nights ago. He was able to sleep but then woke with severe epigastric and right upper quadrant pain. The next day the patient felt a little better but then again developed pain nausea and vomiting. He continued to have vomiting today. He hasn't had any abdominal surgeries. He was evaluated in the emergency department a [place] and noted to have leukocytosis and a gallbladder ultrasound showing some gallbladder wall thickening, trace pericholecystic fluid , and a 2 cm mass probably polyp in the neck of the gallbladder. The patient is here from out of town visiting for bike week. CBC/BMP: 10/13/16 1256 10/13/16 1256 Significant Findings Laboratory Tests Test 10/11/16 10/11/16 10/12/16 10/12/16 12:15 22:18 04:54 04:55 Urine Glucose (UA) 100 mg/dL (NEG) Urine Ketones 15 mg/dL (NEG) Troponin I LESS THAN 0.02 NG/ML (0.02-0.05) Sodium Level 135 MEQ/L (136-145) Estimat Glomerular Filtration 72 ML/MIN (>89) Rate Random Glucose 192 MG/DL (74-106) Calcium Level 8.0 MG/DL (8.5-10.1) Aspartate Amino Transf 91 U/L (15-37) (AST/SGOT) Albumin 2.9 GM/DL (3.4-5.0) White Blood Count 15.6 TH/MM3 (4.0-11.0) Hemoglobin 12.9 GM/DL (13.0-17.0) Hematocrit 36.8 % (39.0-51.0) Mean Corpuscular Volume 79.1 FL (80.0-100.0) Neutrophils (%) (Auto) 88.1 % (16.0-70.0) Lymphocytes (%) (Auto) 5.1 % (9.0-44.0) Neutrophils # (Auto) 13.8 TH/MM3 (1.8-7.7) Lymphocytes # (Auto) 0.8 TH/MM3 (1.0-4.8) Monocytes # (Auto) 1.0 TH/MM3 (0-0.9) Test 10/13/16 12:56 White Blood Count 14.4 TH/MM3 (4.0-11.0) Red Blood Count 4.37 MIL/MM3 (4.50-5.90) Hemoglobin 11.7 GM/DL (13.0-17.0) Hematocrit 34.9 % (39.0-51.0) Mean Corpuscular Volume 79.7 FL (80.0-100.0) Mean Corpuscular Hemoglobin 26.7 PG (27.0-34.0) Neutrophils (%) (Auto) 87.9 % (16.0-70.0) Lymphocytes (%) (Auto) 6.1 % (9.0-44.0) Neutrophils # (Auto) 12.7 TH/MM3 (1.8-7.7) Lymphocytes # (Auto) 0.9 TH/MM3 (1.0-4.8) Sodium Level 132 MEQ/L (136-145) Potassium Level 3.4 MEQ/L (3.5-5.1) Chloride Level 93 MEQ/L (98-107) Blood Urea Nitrogen 20 MG/DL (7-18) Estimat Glomerular Filtration 67 ML/MIN (>89) Rate Random Glucose 188 MG/DL (74-106) Calcium Level 8.3 MG/DL (8.5-10.1) Total Protein 5.9 GM/DL (6.4-8.2) Albumin 2.2 GM/DL (3.4-5.0) PE at Discharge NAD Nonlabored breathing Abd: Moderate distention, inc c/d/i Hospital Course The patient had a severely inflamed gallbladder and a difficult laparoscopic cholecystectomy. Postoperatively, he had minimal pain, however, he did have a postoperative ileus. Initially for the first 2 days he had no flatus and was unable to tolerate much oral intake. He was quite distended. Today, on the day of discharge he is less distended and denies nausea. He is tolerating some full liquids. He is starting to pass a significant amount of flatus. I feel he is safe for discharge. Pt Condition on Discharge: Good Discharge Disposition: Discharge Home Discharge Instructions DIET: Follow Instructions for: As Tolerated, No Restrictions Activities you can perform: See Additionl Instruction Other Activity Instructions: Ok to shower. No driving while on narcotics. Avoid heavy lifting. Follow up Referrals: Surgical - 1 Week with Fransico Lucero MD New Medications: Oxycodone-Acetaminophen (Oxycodone-Acetaminophen) 5-325 mg Tab 1-2 TAB PO Q6H PRN PAIN #30 TAB Continued Medications: Amlodipine-Benazepril (Amlodipine-Benazepril) 10-40 Mg Cap 1 CAP PO DAILY Blood Pressure Management #[address] Ref [address] (Aspir-81) 81 Mg Tabdr Coenzyme Q10 (Ubidecarenone) (Coq-10) 100 Mg Cap 100 MG PO BID Ezetimibe (Zetia) 10 Mg Tab 10 MG PO DAILY #30 Ref 0 TAB Hydrochlorothiazide (Hydrochlorothiazide) 12.5 Mg Tab 12.5 MG PO DAILY #30 Ref 0 TAB Metformin ER (Metformin ER) 500 Mg Liseth 500 MG PO DAILY With evening meal Blood Sugar Management Ref 0 TAB Metoprolol Succinate ER 24 HR (Metoprolol Succinate ER 24 HR) 100 Mg Tab 100 MG PO DAILY #30 Ref 0 TAB Omeprazole (Omeprazole) 40 Mg Cap 40 MG PO BID #30 Ref 0 CAP Rosuvastatin (Crestor) 20 Mg Tab 20 MG PO DAILY Cholesterol Management #30 Ref 0 TAB Fransico Lucero MD Oct 14, 2016 11:12
== END 2016-10-14 11:49 | disposition home or self-care (01) | DRG 418 ==
LOC: PHED 09:04 → PHEDA 11:24 → INTOOBSV 11:24 → HPAC 18:37 → N07B 23:19 → OBSVTOIN 10-13 16:15
PROVIDERS: ADMIT Surgery; ATTEND Surgery
PROC: 0FT44ZZ Resection of Gallbladder, Percutaneous Endoscopic Approach (ICD-10-PCS; principal; 2016-10-11 19:48)
DX: K80.00 Calculus of gallbladder with acute cholecystitis without obstruction (principal); K91.3 Postprocedural intestinal obstruction; K76.0 Fatty (change of) liver, not elsewhere classified; I10 Essential (primary) hypertension; E78.00 Pure hypercholesterolemia, unspecified; Y83.8 Other surgical procedures as the cause of abnormal reaction of the patient, or of later complication, without mention of misadventure at the time of the procedure; E11.9 Type 2 diabetes mellitus without complications; Z87.891 Personal history of nicotine dependence
CPT/HCPCS: 74177; 76705; 80048; 80053; 80076; 81001; 82550; 82948; 83690; 84484; 85025; 85610; 87040; 88304; 93005; 94150; 96361; 96374; 96375; G0378; J1956; J2250; J2270; J2370; J2405; J2710; J2765; J3010; J7030; J7120; Q9967